=== PATIENT | female | born 1985 | race Caucasian/White ===

== ENCOUNTER 2016-06-23 05:54 | Day surgery (SDC) | payer OTHER ==
[2016-06-15 18:07] VITALS: BMI 21.6
[2016-06-23] MEDS ORDERED: GENTAMICIN SO4 80 MG/2 ML VIAL ONE (07:21)
[2016-06-23] MEDS ORDERED: ceFAZolin SODIUM 1 GM VIAL ONE ×2 (07:21→07:28)
[2016-06-23] MEDS ORDERED: DEXAMETHASONE SOD PHOSPHATE 4 MG/1 ML VIAL ONE (07:28)
[2016-06-23] MEDS ORDERED: PROPOFOL 20 ML ONE (07:28)
[2016-06-23] MEDS ORDERED: ONDANSETRON 4 MG/2 ML VIAL ONE ×2 (07:28→09:57)
[2016-06-23] MEDS ORDERED: SUCCINYLCHOLINE CHLORIDE 200 MG/10 ML VIAL ONE (07:28)
[2016-06-23] MEDS ORDERED: MIDAZOLAM HCL 2 MG/2 ML SINGLE DOSE VIAL ONE (07:28)
[2016-06-23] MEDS ORDERED: GENTAMICIN 80MG PREMIX BAG IVPB ONE (09:13)
[2016-06-23] MEDS ORDERED: BACITRACIN 50,000 UNITS VIAL NR ONE (09:14)
[2016-06-23] MEDS ORDERED: ceFAZolin SODIUM 1 GM VIAL IVPB ONE (09:14)
[2016-06-23] MEDS ORDERED: GUM MASTIC/STORAX/MSAL/ALCOHOL 1 DRP DROPSBTL MC ONE (09:25)
[2016-06-23] MEDS ORDERED: oxyCODONE HCL 5 MG TABLET PO PRN (09:44)
[2016-06-23] MEDS ORDERED: ONDANSETRON 4 MG/2 ML VIAL IVPUSH PRN (09:44)
[2016-06-23] MEDS ORDERED: ONDANSETRON 4 MG/2 ML VIAL IVPUSH ONE (10:00)
[2016-06-23] MEDS ORDERED: oxyCODONE HCL 5 MG TABLET ONE (10:57)
[2016-06-23 11:18] VITALS: TEMP 98.2
[2016-06-23 12:52] VITALS: BP 114/71; PULSE 81
--- NOTE | 2016-06-24 09:22 | PATH ---
Surgical Pathology Report Patient Name: YANDEL PATEL Med. Rec. #: [id number] /Age/Gender: 1985 (Age: 31) / F Account: [id number] Location: [facility] AMBULATORY Taken: 06/22/2016 Received: 06/23/2016 Reported: 06/24/2016 Physicians: Wagner Dowd Specimen(s) Received LEFT BREAST IMPLANT Clinical History Breast cancer Final Diagnosis MOLDER VACUUM, LEFT BREAST, REMOVAL: BREAST IMPLANT (GROSS ONLY). Electronically Signed Justice Mason M.D. Gross Description Received fresh, labeled "left breast implant," is a 12 cm in diameter x 3 cm in depth clear, rubbery, disc-shaped object, consistent with a breast implant. No soft tissue is present. No sections are submitted, gross only. 06/23/201606/23/2016
--- NOTE | 2016-06-24 09:37 | OP ---
DATE OF OPERATION: 06/23/2016 PREOPERATIVE DIAGNOSIS: Left breast reconstruction status post mastectomy, with asymmetry and capsular contracture. POSTOPERATIVE DIAGNOSIS: Left breast reconstruction status post mastectomy, with asymmetry and capsular contracture. PROCEDURE PERFORMED: Left breast implant exchange and nipple-areolar reconstruction with Alloderm. SURGEON: Dianelsy Dowd MD DRAINS: None. COMPLICATIONS: None. DESCRIPTION OF PROCEDURE: The patient was brought to the operating room and placed supine on the operating table. After induction of laryngeal mask anesthesia, the patient's left chest was prepped with chlorhexidine solution and draped with sterile drapes. With this completed, a sterile surgical marking pen was used to refresh the preoperative markings and an appropriate time-out was performed, identifying the patient and the nature of the procedure, allowing all operative participants to ask questions and/or raise concerns as indicated. Once this was completed, a number 15 blade was used to incise the skin and subcutaneous tissues, outlining a C-V flap for the nipple-areolar reconstruction. Elevating the skin superficially allowed exposure of the previously placed Alloderm. This was incised, entering the capsule. A perimeter capsulotomy was then performed to create further laxity and elevation in a superior direction. The old implant was removed. The pocket was copiously irrigated with sterile saline, and the new 255-mL textured implant was placed. An Alloderm sheet was imbricated over that, with percutaneous 2-0 Vicryl sutures placed for marionette through bolstered Xeroform gauze. Once this was completed, the C-V flap was then closed, transposing the V wings onto the cap with interrupted 3-0 Monocryl suture. Lastly, interrupted 5-0 fast-absorbing plain gut suture was placed. dressings and surgical bra were applied. The patient was extubated and transferred to the postanesthesia care unit in stable condition. DIANELYS DOWD M.D. MIKE/[id number]
== END 2016-06-23 12:20 | disposition home or self-care (01) ==
LOC: FASU 05:54
PROVIDERS: ATTEND Surgery Plastic and Reconstructive Surgery
PROC: 0HRU0JZ Replacement of Left Breast with Synthetic Substitute, Open Approach (ICD-10-PCS; 2016-06-23)
PROC: 0HRX07Z Replacement of Left Nipple with Autologous Tissue Substitute, Open Approach (ICD-10-PCS; 2016-06-23)
PROC: 0HWU0JZ Revision of Synthetic Substitute in Left Breast, Open Approach (ICD-10-PCS; 2016-06-23)
PROC: 0HPU0JZ Removal of Synthetic Substitute from Left Breast, Open Approach (ICD-10-PCS; principal; 2016-06-23 08:24)
DX: T85.44XA Capsular contracture of breast implant, initial encounter (principal); Y83.9 Surgical procedure, unspecified as the cause of abnormal reaction of the patient, or of later complication, without mention of misadventure at the time of the procedure; Y92.9 Unspecified place or not applicable; N65.1 Disproportion of reconstructed breast; Z90.12 Acquired absence of left breast and nipple; Z85.3 Personal history of malignant neoplasm of breast
CPT/HCPCS: 84703; 88300-TC; 94760

== ENCOUNTER 2017-09-29 07:41 | Day surgery (SDC) | payer OTHER ==
[2017-09-19 15:48] VITALS: BMI 23.3
[2017-09-29 15:27] VITALS: BP 120/65; PULSE 968; TEMP 97
== END 2017-09-29 15:15 | disposition home or self-care (01) ==
LOC: FASU 07:41
PROVIDERS: ATTEND Surgery Surgical Oncology
PROC: 0JPT0WZ Removal of Totally Implantable Vascular Access Device from Trunk Subcutaneous Tissue and Fascia, Open Approach (ICD-10-PCS; principal; 2017-09-29)
PROC: 0HRV07Z Replacement of Bilateral Breast with Autologous Tissue Substitute, Open Approach (ICD-10-PCS; 2017-09-29)
PROC: 0HNT0ZZ Release Right Breast, Open Approach (ICD-10-PCS; 2017-09-29)
PROC: 0HRT0JZ Replacement of Right Breast with Synthetic Substitute, Open Approach (ICD-10-PCS; 2017-09-29)
PROC: 0HPT0JZ Removal of Synthetic Substitute from Right Breast, Open Approach (ICD-10-PCS; 2017-09-29)
PROC: 0HRT0JZ Replacement of Right Breast with Synthetic Substitute, Open Approach (ICD-10-PCS; 2017-09-29)
DX: Z85.3 Personal history of malignant neoplasm of breast (principal); Z45.2 Encounter for adjustment and management of vascular access device; Z92.21 Personal history of antineoplastic chemotherapy; M95.4 Acquired deformity of chest and rib; Z90.13 Acquired absence of bilateral breasts and nipples; N65.1 Disproportion of reconstructed breast; T85.41XA Breakdown (mechanical) of breast prosthesis and implant, initial encounter; Y83.8 Other surgical procedures as the cause of abnormal reaction of the patient, or of later complication, without mention of misadventure at the time of the procedure; Y92.89 Other specified places as the place of occurrence of the external cause
CPT/HCPCS: 71045-TC-FY; 84703; 88300-TC; 94760